=== PATIENT | female | born 1990 | race African-American/Black ===

== ENCOUNTER 2021-12-29 23:48 | Inpatient (IN) | payer MEDICAID, OTHER ==
[~2021-12-29] VITALS: Ht 157.5 cm; Wt 74.8 kg
--- NOTE | 2021-12-30 00:27 | NUR ---
BIBSELF C/O RIGHT SIDED WEAKNESS, SOB, ABD PAIN STARTED AT 9 AM. PT A/OX4. RESP EVEN AND NONLABORED ON R/A. PT AMBULATORY WITH STEADY GAIT. CONNECTED PT TO POX AND MONITOR. SAFETY MEASURES IN PLACE.
--- NOTE | 2021-12-30 00:55 | NUR ---
L HAND #20G S/L BLOOD COLLECTED AND SENT TO LAB.
[2021-12-30] MEDS ORDERED: ONDANSETRON HCL/PF 4 MG/2 ML VIAL ONE (00:56)
--- NOTE | 2021-12-30 00:56 | NUR ---
COVID ANTIGEN SWAB COLLECTED AND SENT TO LAB
[2021-12-30] MEDS ORDERED: ONDANSETRON HCL/PF 4 MG/2 ML VIAL IVP ONE (01:00)
[2021-12-30] MEDS ORDERED: IV NS 0.9% 500 ML BAG IV ONE (01:00)
--- NOTE | 2021-12-30 01:12 | NUR ---
URINE COLLECTED AND SENT TO LAB
[2021-12-30 01:16] LABS: BASOPHILS % (AUTO) 0.8 % (0.0-2.0); EOSINOPHILS % (AUTO) 2.2 % (0.0-6.0); HEMATOCRIT 37 % (33-45); HEMOGLOBIN 11.5 g/dL (11.5-14.8); LYMPHOCYTES # (AUTO) 0.9 K/uL (0.8-4.8); LYMPHOCYTES % (AUTO) 24.6 % (20.0-44.0); MEAN CORPUSCULAR HGB CONC 32 g/dl (31.0-36.0); MEAN CORPUSCULAR VOLUME 70 fL (82-100); MONOCYTES # (AUTO) 0.4 K/uL (0.1-1.30); MONOCYTES % (AUTO) 11.6 % (2.0-12.0); NEUTROPHILS # (AUTO) 2.2 K/uL (1.8-8.9); NEUTROPHILS % (AUTO) 60.8 % (43.0-81.0); PLATELET COUNT (AUTO) 253 K/uL (150-450); RED BLOOD CELL COUNT(AUTO) 5.24 MIL/uL (4.0-5.2); WHITE BLOOD COUNT (AUTO) 3.7 K/uL (4.3-11.0)
[2021-12-30] MEDS ORDERED: MORPHINE SULFATE INJ 2 MG/ML DISP.SYRIN ONE (01:28)
[2021-12-30] MEDS ORDERED: MORPHINE SULFATE INJ 2 MG/ML DISP.SYRIN IV ONE (01:30)
[2021-12-30 01:40] LABS: BILIRUBIN,URINE LARGE (NEGATIVE); COLOR,URINE YELLOW (YELLOW); LEUKOCYTE ESTERASE ,URINE NEGATIVE (NEGATIVE); NITRITE, URINE NEGATIVE (NEGATIVE); PROTEIN,URINE 100 mg/dl (NEGATIVE); UGLUCOSE 100 MG/DL mg/dL (NEGATIVE); UROBILINOGEN,URINE >=8.0 EU/dL (0.2)
[2021-12-30 02:07] LABS: BACTERIA,URINE Rare /HPF (None Seen); SQUAMOUS EPITHELIAL CELL,UR Few /HPF (None Seen); WBC,URINE 0-2 /HPF (0-3)
[2021-12-30 02:08] LABS: CALCIUM, SERUM 9.2 mg/dL (8.5-10.1); CARBON DIOXIDE 21 mmol/L (21-32); CHLORIDE 104 mmol/L (98-107); CREATININE 0.8 mg/dL (0.6-1.3); GLUCOSE 108 mg/dL (74-106); POTASSIUM 4.2 mmol/L (3.5-5.1); SODIUM SERUM 138 mmol/L (136-145); UREA NITROGEN, BLOOD 14 mg/dL (7-18)
[2021-12-30 02:13] LABS: ALANINE AMINOTRANSFERASE 14 U/L (12-78); ALBUMIN 3.6 g/dL (3.4-5.0); ALKALINE PHOSPHATASE 139 U/L (46-116); ASPARTATE AMINOTRANSFERASE 29 U/L (15-37); BILIRUBIN,DIRECT 1.2 mg/dL (0.0-0.2); BILIRUBIN,TOTAL 2.3 mg/dL (0.2-1.0); TOTAL PROTEIN, SERUM 7.9 g/dL (6.4-8.2)
--- NOTE | 2021-12-30 08:13 | NUR ---
GOING TO BED 314-1
--- NOTE | 2021-12-30 08:20 | NUR ---
REPORT GIVEN TO MIRTHA DOSS FOR GAYATHRI
[2021-12-30 08:30] VITALS: BP 101/59
--- NOTE | 2021-12-30 08:42 | NUR ---
PT TRANSFERRED TO 3W IN STABLE CONDITION.
--- NOTE | 2021-12-30 08:45 | NUR ---
RN NOTE PATIENT WAS TRANSFERRED TO UNIT FORM ER. PATIENT CAM ETO UNIT VIA NO SIGN OF DISTRESS. PATIENT WAS ORIENTED TO ROOM SETUP AND EDUCATED TO THE USE OF CALL LIGHT. PATIENT REFUSED SKIN ASSESSMENT, PER PATIENT SKIN IS INTACT. ALL BELONGINGS CHECKED AND SIGNED. PATIENT AWAKE IN BED RESTING. A/O X4. NO S/S OF PAIN NOTED AT THIS TIME. ON ROOM AIR, NO DISTRESS OR SHORTNESS OF BREATH NOTED. IV ACCESS L HAND #20G, INTACT, PATENT AND FLUSHING WELL. PATIENT WITH EXTERNAL NETWORKING TECHNOLOGY INSTRUCTOR WITH CURRENT READING OF SR AND HR OF 90, NO CARDIAC DISTRESS NOTED. FALL AND SAFETY MEASURES IN PLACE, BED ALARM ON, BED IN LOW AND LOCK POSITION, CALL LIGHT AND TABLE WITHIN EASY REACH, SIDE RAILS UP X2. WILL CONTINUE TO MONITOR.
[2021-12-30] MEDS ORDERED: ASPIRIN EC 325 MG TABLET.DR PO SCH (09:00)
[2021-12-30] MEDS: PANTOPRAZOLE 40 MG TABLET.DR PO SCH (10:08)
[2021-12-30] MEDS ORDERED: oxyCODONE/APAP (5/325 MG) 1 UDTAB TABLET PO PRN (11:30)
[2021-12-30 12:00] VITALS: BP 109/68
[2021-12-30 16:00] VITALS: BP 137/57
[2021-12-30] MEDS ORDERED: PANT40TA49 PO (16:21)
[2021-12-30] MEDS ORDERED: ASPI-1169 PO (16:21)
[2021-12-30] MEDS ORDERED: MIDO5TAB4 PO (16:21)
[2021-12-30] MEDS ORDERED: ATOR40TA PO (16:21)
[2021-12-30] MEDS ORDERED: ACET-3117 PO (16:21)
[2021-12-30] MEDS ORDERED: ONDA-97 PO (16:21)
[2021-12-30] MEDS ORDERED: APIX5TAB PO (16:21)
[2021-12-30] MEDS ORDERED: AMIO200T5 PO (16:21)
[2021-12-30] MEDS ORDERED: MORP15TA PO (16:49)
[2021-12-30] MEDS ORDERED: MIDODRINE HCL (5MG) 5 MG TABLET PO PRN (17:30)
[2021-12-30] MEDS: AMIODARONE HCL 200 MG TABLET PO SCH ×2 (17:30→17:41)
[2021-12-30] MEDS: MORPHINE SULFATE IR 15 MG TABLET PO SCH ×2 (17:40→18:00)
[2021-12-30] MEDS: ATORVASTATIN 40 MG TABLET PO SCH ×2 (17:41→18:00)
[2021-12-30] MEDS ORDERED: ACETAMINOPHEN 325 MG TABLET PO PRN (18:00)
--- NOTE | 2021-12-30 18:45 | NUR ---
RN NOTE PATIENT REFUSED HER MEDICATIONS FOR 17OO, AMIODARONE, ATORVASTATIN AND MORPHINE PO. PATIENT FIRST ASKED FOR PAIN MEDICATION, AFTER MEDICATIONS WERE OPENED SHE SAID SHE WILL NOT TAKE IT UNTIL AFTER SHE FINISH HER DINNER, AFTER PATIENT FINISHED DINNER SHE STILL REFUSED THE MEDICATIONS. MEDICATION MORPHINE, AMIODARONE AND ATORVASTATIN WAS WAISTED WITH CHARGE NURSE. PHARMACY AWARE.
--- NOTE | 2021-12-30 19:02 | NUR ---
RN CLOSING NOTE PATIENT AWAKE IN BED RESTING. A/O X4. PAIN 8/10 NOTED AT THIS TIME, BUT PATIENT REFUSED PAIN MEDICATION. ON ROOM AIR, NO DISTRESS OR SHORTNESS OF BREATH NOTED. IV ACCESS L HAND #20G, INTACT, PATENT AND FLUSHING WELL. PATIENT WITH EXTERNAL SUB MASTER WITH CURRENT READING OF ST AND HR OF 109, NO CARDIAC DISTRESS NOTED. FALL AND SAFETY MEASURES IN PLACE, BED ALARM ON, BED IN LOW AND LOCK POSITION, CALL LIGHT AND TABLE WITHIN EASY REACH, SIDE RAILS UP X2. WILL ENDORSE TO BAND SAWYER.
--- NOTE | 2021-12-30 19:45 | NUR ---
LCPC OPENING NOTE RECEIVED PATIENT IN BED; AWAKE, ALERT AND ORIENTED X 4. BREATHING EVEN AND UNLABORED. ON ROOM AIR; TOLERATING WELL. NOT IN ANY FORM OF RESPIRATORY DISTRESS. ON TELEMETRY MONITORING WITH READING OF S HR-105 BPM. WITH IV ACCESS ON LEFT HAND 2Og: PATENT, INTACT AND SALINE LOCKED. ABLE TO MAKE NEEDS KNOWN. SAFETY MEASURES IMPLEMENTED: CALL LIGHT AND TABLE WITHIN REACH, SIDE RAILS UP X 2, BED IN LOWEST LOCKED POSITION. WILL CONTINUE TO MONITOR. .
[2021-12-30 20:00] VITALS: BP 95/53
[2021-12-30] MEDS: SIMVASTATIN 20 MG TABLET PO SCH (21:31)
--- NOTE | 2021-12-30 21:31 | NUR ---
RN NOTE SIMVASTATIN 40 MG PO HELD PER PATIENT'S REQUEST.
[2021-12-31] VITALS: BP 88/52
--- NOTE | 2021-12-31 00:54 | NUR ---
RN NOTE MORPHINE SULFATE IR 15 MG PO HELD PER PATIENT'S REQUEST. WILL CONTINUE TO MONITOR
[2021-12-31 04:00] VITALS: BP 101/74
[2021-12-31] MEDS: MORPHINE SULFATE IR 15 MG TABLET PO SCH ×5 (06:00→23:44)
--- NOTE | 2021-12-31 06:49 | NUR ---
RN NOTE MORPHINE SULFATE IR 15 MG PO HELD PER PATIENT'S REQUEST. WILL CONTINUE TO MONITOR
[2021-12-31 06:52] LABS: BASOPHILS % (AUTO) 1.1 % (0.0-2.0); EOSINOPHILS % (AUTO) 2.1 % (0.0-6.0); HEMATOCRIT 34 % (33-45); HEMOGLOBIN 10.9 g/dL (11.5-14.8); LYMPHOCYTES # (AUTO) 0.9 K/uL (0.8-4.8); MEAN CORPUSCULAR HGB CONC 32 g/dl (31.0-36.0); MEAN CORPUSCULAR VOLUME 69 fL (82-100); MONOCYTES # (AUTO) 0.4 K/uL (0.1-1.30); MONOCYTES % (AUTO) 11.7 % (2.0-12.0); NEUTROPHILS # (AUTO) 2.2 K/uL (1.8-8.9); NEUTROPHILS % (AUTO) 60.1 % (43.0-81.0); PLATELET COUNT (AUTO) 229 K/uL (150-450); RED BLOOD CELL COUNT(AUTO) 4.96 MIL/uL (4.0-5.2); WHITE BLOOD COUNT (AUTO) 3.6 K/uL (4.3-11.0)
[2021-12-31] MEDS ORDERED: MORPHINE SULFATE INJ 2 MG/ML DISP.SYRIN IV ONE (07:00)
--- NOTE | 2021-12-31 07:00 | NUR ---
EXPERIMENTAL DISPLAY BUILDER CLOSING NOTE PATIENT IN BED; AWAKE, ALERT AND ORIENTED X 4. BREATHING EVEN AND UNLABORED. STABLE ON ROOM AIR. IN NO ACUTE DISTRESS. ON TELEMETRY MONITORING WITH READING OF SR HR-91BPM. WITH IV ACCESS ON LEFT HAND 2Og: PATENT, INTACT AND SALINE LOCKED. SAFETY MEASURES MAINTAINED: CALL LIGHT AND TABLE WITHIN REACH, SIDE RAILS UP X 2, BED IN LOWEST LOCKED POSITION. ENDORSED TO MIRTHA DOSS FOR GAYATHRI.
--- NOTE | 2021-12-31 07:08 | NUR ---
RN NOTE PATIENT C/O ABDOMINAL PAIN 12/02. MORPHINE 2MG IV GIVEN ORDERED. ENDORSED TO MIRTHA DOSS FOR GAYATHRI.
[2021-12-31 07:13] LABS: CREATININE 0.9 mg/dL (0.6-1.3); POTASSIUM 4.2 mmol/L (3.5-5.1)
--- NOTE | 2021-12-31 07:33 | NUR ---
RN OPENING NOTE PATIENT AWAKE IN BED RESTING. A/O X4. NO PAIN NOTED AT THIS TIME. ON ROOM AIR, NO DISTRESS OR SHORTNESS OF BREATH NOTED. IV ACCESS L HAND #20G, INTACT, PATENT AND FLUSHING WELL. PATIENT WITH EXTERNAL RN FLIGHT WITH CURRENT READING OF SR AND HR OF 91, NO CARDIAC DISTRESS NOTED. FALL AND SAFETY MEASURES IN PLACE, BED ALARM ON, BED IN LOW AND LOCK POSITION, CALL LIGHT AND TABLE WITHIN EASY REACH, SIDE RAILS UP X2. WILL ENDORSE TO SEGMENTAL WALL INSTALLER.
[2021-12-31 08:00] VITALS: BP 102/77
[2021-12-31] MEDS: ASPIRIN 81 MG TAB.CHEW PO SCH (08:35)
[2021-12-31] MEDS: PANTOPRAZOLE 40 MG TABLET.DR PO SCH (08:35)
[2021-12-31] MEDS: APIXABAN 5 MG TABLET PO SCH ×2 (08:37→17:13)
[2021-12-31] MEDS: AMIODARONE HCL 200 MG TABLET PO SCH (08:43)
[2021-12-31] MEDS ORDERED: PANTOPRAZOLE 40 MG TABLET.DR PO SCH (09:00)
[2021-12-31 09:02] LABS: EOSINOPHILS % (MANUAL) 2 % (0-4); LYMPHOCYTES % (MANUAL) 27 % (16-48); MONOCYTES % (MANUAL) 11 % (0-11.0); NEUTROPHILS % (MANUAL) 60 (42-76)
[2021-12-31 10:00] LABS: IRON, SERUM 43 ug/dl (50-175); TOTAL IRON BINDING CAPACITY 547 ug/dl (250-450)
--- NOTE | 2021-12-31 10:00 | NUR ---
RN NOTE PATIENT WAS NONCOMPLIANT WITH MEDICATIONS AND KEPT REFUSING ALL HER SCHEDULE MEDICATIONS. PATIENT ONLY WANT MORPHINE IV. PATIENT HAVE MORPHINE PO BUT REFUSED TO TAKE IT. PATIENT REQUESTED MORPHINE IV AND SAID IF SHE DOES NOT GET IT SHE WOULD LIKE TO LEAVE. DOCTOR NOTIFIED. CHARGE NURSE SPOKE WITH PATIENT AND EXPLAIN AGAIN HER DIAGNOSIS, RISK AND FACTORS OF HER NOT TAKING HER MEDICATIONS. PATIENT STATED SHE WILL TAKE HER MEDICATIONS BUT WOULD LIKE HER DOCTOR TO BE CHANGE. CHARGE NURSE AWARE.
[2021-12-31 10:14] LABS: FERRITIN 30 ng/mL (8-388)
[2021-12-31] MEDS: CARVEDILOL 3.125 MG TABLET PO SCH ×2 (10:37→21:00)
[2021-12-31] MEDS: SPIRONOLACTONE 25 MG TABLET PO SCH (10:37)
[2021-12-31] MEDS ORDERED: MAG HYDROX/AL HYDROX/SIMETH 30 ML UDC PO PRN (14:30)
--- NOTE | 2021-12-31 14:43 | NUR ---
RN NOTE PATIENT COMPLAINED OF STOMACHACHE AND ABDOMINAL PAIN, MAALOX WAS ORDERED BUT PATIENT REFUSED. PATIENT HAVE MORPHINE PO FOR PAIN BUT PATIENT REFUSED TO TAKE IT, PATIENT SAID SHE WAS TAKING MORPHINE PO AT HOME AND STOP TAKING IT BECAUSE IT MAKE HER VOMIT NONE-STOP PATIENT KEEP ASKING FOR IV MORPHINE, DOCTOR IS AWARE AND ALREADY TALKED TO PATIENT ABOUT IT. PATIENT REQUESTED FOR HER DOCTOR TO BE CHANGE, CHARGE NURSE AWARE.
[2021-12-31 16:00] VITALS: BP 108/74
[2021-12-31] MEDS: ATORVASTATIN 40 MG TABLET PO SCH (17:13)
[2021-12-31] MEDS: ONDANSETRON HCL/PF 4 MG/2 ML VIAL IVP PRN (17:13)
--- NOTE | 2021-12-31 18:41 | NUR ---
RN CLOSING NOTE PATIENT AWAKE IN BED RESTING. A/O X4. NO PAIN NOTED AT THIS TIME. ON ROOM AIR, NO DISTRESS OR SHORTNESS OF BREATH NOTED. IV ACCESS R HAND #20G, INTACT, PATENT AND FLUSHING WELL. PATIENT WITH EXTERNAL CORNCOB PIPE MANUFACTURING SUPERVISOR WITH CURRENT READING OF SR AND HR OF 90, NO CARDIAC DISTRESS NOTED. FALL AND SAFETY MEASURES IN PLACE, BED ALARM ON, BED IN LOW AND LOCK POSITION, CALL LIGHT AND TABLE WITHIN EASY REACH, SIDE RAILS UP X2. WILL ENDORSE TO DREDGE DECKHAND.
--- NOTE | 2021-12-31 19:41 | NUR ---
RN OPENING NOTE RECEIVED PATIENT IN BED SLEEPING BUT EASY TO AROUSED,. A/O X4. ON ROOM AIR, NO SOB/DISTRESS NOTED. IV ACCESS L HAND #20G, INTACT, PATENT AND FLUSHING WELL. PATIENT WITH EXTERNAL TANKER DRIVER WITH CURRENT READING OF SR AND HR OF 89,FALL AND SAFETY MEASURES IN PLACE,BED IN LOW AND LOCK POSITION, CALL LIGHT AND TABLE WITHIN EASY REACH, SIDE RAILS UP X2. WILL CONTINUE TO MONITOR.
[2021-12-31 20:00] VITALS: BP 98/60
[2021-12-31] MEDS: SIMVASTATIN 20 MG TABLET PO SCH (21:14)
[2022-01-01] VITALS: BP 97/55
[2022-01-01 04:00] VITALS: BP 98/58
[2022-01-01] MEDS: MORPHINE SULFATE IR 15 MG TABLET PO SCH ×2 (05:35→12:00)
--- NOTE | 2022-01-01 05:38 | NUR ---
RN NOTES; PT REFUSED MORPHINE 15MG,SHE SAID DON'T NEED IT.
--- NOTE | 2022-01-01 06:19 | NUR ---
RN CLOSING NOTE; PATIENT IN BED AA/O X4,NICOLE WELL ON ROOM AIR,NO SOB/DISTRESS NOTED,BREATHING EVEN AND UNLABORED,DUE MEDS GIVEN ORDER,ALL NEEDS ATTENDED, IV ACCESS R HAND #20G, INTACT, PATENT AND FLUSHING WELL. PATIENT WITH EXTERNAL INDUSTRIAL LOCOMOTIVE OPERATOR WITH CURRENT READING OF SR 88, FALL AND SAFETY MEASURES IN PLACE, BED ALARM ON, BED IN LOW AND LOCK POSITION, CALL LIGHT AND TABLE WITHIN EASY REACH, SIDE RAILS UP X2. WILL ENDORSE TO PRINCIPAL JAVA SOFTWARE ENGINEER
--- NOTE | 2022-01-01 07:20 | NUR ---
RN OPENING NOTES RECEIVED PATIENT IN BED AWAKE, A/O X4, VERBALLY RESPONSIVE, NO SIGNS OF ACUTE DISTRESS NOTED. ON ROOM AIR, NO SOB NOTED. BREATHING EVEN AND UNLABORED. ON TELE MONITOR SHOWING SR, HR @ 89. NOTED WITH IV ACCESS ON LEFT HAND #20G, INTACT AND PATENT, SALINE LOCKED. NO C/O PAIN AT THIS TIME. SAFETY MEASURE IN PLACE. BED IN LOWEST AND LOCKED POSITION, SIDE RAILS UP X2, CALL LIGHT PLACED WITHIN EASY REACH. WILL CONTINUE TO MONITOR PATIENT.
[2022-01-01 08:00] VITALS: BP 105/67
--- NOTE | 2022-01-01 08:30 | NUR ---
WOUND CARE CONSULT: RECEIVED CONSULT FOR REDNESS/BLEEDING AT ABDOMINAL FOLDS BUT NO ISSUES WITH SKIN NOTED. WILL SEE PRN.
[2022-01-01] MEDS ORDERED: SPIR25TA6 PO (08:44)
[2022-01-01] MEDS ORDERED: CARV3.122 PO (08:44)
[2022-01-01] MEDS ORDERED: PANT40TA49 PO (08:44)
[2022-01-01] MEDS ORDERED: MORP15TA PO (08:44)
[2022-01-01] MEDS: CARVEDILOL 3.125 MG TABLET PO SCH (09:00)
[2022-01-01] MEDS: APIXABAN 5 MG TABLET PO SCH (09:09)
[2022-01-01] MEDS: SPIRONOLACTONE 25 MG TABLET PO SCH (09:10)
[2022-01-01] MEDS: AMIODARONE HCL 200 MG TABLET PO SCH (09:10)
[2022-01-01] MEDS: PANTOPRAZOLE 40 MG TABLET.DR PO SCH (09:10)
[2022-01-01] MEDS: ASPIRIN 81 MG TAB.CHEW PO SCH (09:10)
[2022-01-01 12:00] VITALS: BP 97/65
[2022-01-01] MEDS ORDERED: MORPHINE SULFATE IR 15 MG TABLET PO ONE (15:00)
[2022-01-01] MEDS: ONDANSETRON HCL/PF 4 MG/2 ML VIAL IVP PRN (15:04)
--- NOTE | 2022-01-01 16:50 | NUR ---
CLERICAL MANAGER NOTE PATIENT DISCHARGED HOME IN STABLE CONDITION. PATIENT REMAINS AWAKE, A/O X4, VERBALLY RESPONSIVE. NO SIGNS OF ACUTE DISTRESS NOTED. IV ACCESS ON RIGHT HAND REMOVED, NO BLEEDING NOTED, PRESSURE DRESSING APPLIED TO SITE. ARM NAME BAND REMOVED. ALL BELONGINGS ACCOUNTED FOR. FORM VALERIO BY PATIENT. EXITCARE FOLDER GIVEN TO PATIENT, HEALTH TEACHINGS AND DISCHARGED INSTRUCTIONS PROVIDED WITH VERBALIZATION OF UNDERSTANDING. PATIENT LEFT UNIT VIA W/C ACCOMPANIED PATIENT TO THE LOBBY, PATIENT PICKED UP BY [facility] @3678. AWARE OF DISCHARGE.
--- NOTE | 2022-01-02 09:35 | NUR ---
SS consult requested for code stroke.However, Pt. has departed.
== END 2022-01-01 16:00 | disposition home health service (06) | DRG 54 ==
LOC: ER 23:51 → TRANSITION 12-30 06:17 → TELE 12-30 08:24
PROVIDERS: ADMIT Internal Medicine; ATTEND Internal Medicine
DX: G43.109 Migraine with aura, not intractable, without status migrainosus (principal); I50.23 Acute on chronic systolic (congestive) heart failure; I27.20 Pulmonary hypertension, unspecified; I42.9 Cardiomyopathy, unspecified; R47.1 Dysarthria and anarthria; K76.1 Chronic passive congestion of liver; I69.351 Hemiplegia and hemiparesis following cerebral infarction affecting right dominant side; Z20.822 Contact with and (suspected) exposure to COVID-19; Z88.8 Allergy status to other drugs, medicaments and biological substances; G89.29 Other chronic pain; E80.6 Other disorders of bilirubin metabolism; D21.4 Benign neoplasm of connective and other soft tissue of abdomen; D64.9 Anemia, unspecified; Z79.01 Long term (current) use of anticoagulants; Z79.82 Long term (current) use of aspirin; Z79.899 Other long term (current) drug therapy
CPT/HCPCS: 36415; 70450-TC; 70544-TC; 70551-TC; 71045-TC; 80048-TC; 80061-TC; 80076-TC; 81001; 82728-TC; 83540-TC; 84484-TC; 84703-TC; 85025-TC; 85652-TC; 85730-TC; 87081-TC; 92507-TC; 92521; 93307-TC; 97112-TC; 97116-TC; 97164; 97530-TC; 97535-TC; C9803; G0378; J2270; J2405; J7040

== ENCOUNTER 2022-01-14 20:14 | Emergency (ER) | payer OTHER ==
[~2022-01-14] VITALS: Ht 157.5 cm; Wt 81.6 kg
[~2022-01-14 20:14] MED LIST: ACET-3117 PO; AMIO200T5 PO; APIX5TAB PO; ASPI-1169 PO; ATOR40TA PO; CARV3.122 PO; MIDO5TAB4 PO; MORP15TA PO; ONDA-97 PO; PANT40TA49 PO; SPIR25TA6 PO
--- NOTE | 2022-01-14 20:29 | NUR ---
CALLED FOR TRIAGE, NO RESPONSE AND NOT IN WAITING ROOM
--- NOTE | 2022-01-14 20:40 | NUR ---
TO ER BED 3. BIBS. R SIDE ABD PAIN AND DARK RED BLOOD STOOL X 4 DAYS LAST EPISODE 1 HR . PT ALERT AND ORIENTED. RR EVEN AND NON LABORED. CONNECTED TO MONITOR. AWAITING MD MENEZES
[2022-01-14] MEDS ORDERED: MORPHINE SULFATE INJ 4 MG/ML DISP.SYRIN ONE ×2 (20:54→20:59)
[2022-01-14] MEDS ORDERED: ONDANSETRON HCL/PF 4 MG/2 ML VIAL ONE ×2 (20:54→20:58)
[2022-01-14] MEDS ORDERED: ONDANSETRON HCL/PF 4 MG/2 ML VIAL IVP ONE (21:00)
[2022-01-14] MEDS ORDERED: IV NS 0.9% 1,000 ML BAG IV ONE (21:00)
[2022-01-14] MEDS ORDERED: MORPHINE SULFATE INJ 2 MG/ML DISP.SYRIN IV ONE (21:00)
--- NOTE | 2022-01-14 21:03 | NUR ---
RETURNED MORPHINE 4MG AND ZOFRAN 4MG, WAS ALREADY PULLED BY ANOTHER NURSE. WITNESSED BY SECOND RN
--- NOTE | 2022-01-14 21:16 | NUR ---
RAC #20G S/L BLOOD COLLECTED AND SENT TO LAB. OFFERED PT URINE CUP; NOT ABLE TO URINATE AT THIS TIME. WILL TRY AGAIN LATER.
[2022-01-14 22:20] LABS: BASOPHILS # (AUTO) 0.1 K/uL (0.0-0.2); BASOPHILS % (AUTO) 1.3 % (0.0-2.0); EOSINOPHILS % (AUTO) 1.6 % (0.0-6.0); HEMATOCRIT 36 % (33-45); HEMOGLOBIN 11.5 g/dL (11.5-14.8); LYMPHOCYTES # (AUTO) 0.9 K/uL (0.8-4.8); LYMPHOCYTES % (AUTO) 19.6 % (20.0-44.0); MEAN CORPUSCULAR HGB CONC 32 g/dl (31.0-36.0); MEAN CORPUSCULAR VOLUME 68 fL (82-100); MONOCYTES # (AUTO) 0.3 K/uL (0.1-1.30); MONOCYTES % (AUTO) 6.8 % (2.0-12.0); NEUTROPHILS # (AUTO) 3.2 K/uL (1.8-8.9); NEUTROPHILS % (AUTO) 70.7 % (43.0-81.0); PLATELET COUNT (AUTO) 215 K/uL (150-450); RED BLOOD CELL COUNT(AUTO) 5.34 MIL/uL (4.0-5.2); WHITE BLOOD COUNT (AUTO) 4.6 K/uL (4.3-11.0)
[2022-01-14 22:32] LABS: CREATININE 0.9 mg/dL (0.6-1.3); POTASSIUM 3.9 mmol/L (3.5-5.1)
[2022-01-14 22:47] LABS: ALBUMIN 3.9 g/dL (3.4-5.0); BILIRUBIN,DIRECT 1.4 mg/dL (0.0-0.2); BILIRUBIN,TOTAL 2.9 mg/dL (0.2-1.0); TOTAL PROTEIN, SERUM 8.5 g/dL (6.4-8.2)
--- NOTE | 2022-01-14 23:13 | NUR ---
IV removed. Catheter intact and site benign. Pressure and 4x4 applied to site. No bleeding noted.
--- NOTE | 2022-01-14 23:14 | NUR ---
Patient discharged to home in stable condition. Written and verbal after care instructions given. Patient verbalizes understanding of instruction.
--- NOTE | 2022-01-14 23:20 | NUR ---
CALLED CALL THE [facility] TO ARRANGE TRANSPORTATION
[2022-01-15 03:40] VITALS: BP 118/86
== END 2022-01-15 03:41 | disposition home or self-care (01) ==
LOC: ER 20:16
DX: K62.5 Hemorrhage of anus and rectum (principal); Z88.8 Allergy status to other drugs, medicaments and biological substances; Z60.2 Problems related to living alone; Z79.899 Other long term (current) drug therapy
CPT/HCPCS: 99284; 96374; 96361; 96375; 93005; 85025; 80048; 83690; 80076; 36415; 84484; 85730; 86850; J2270; J2405; J7030 ×2

== ENCOUNTER 2022-01-18 19:47 | Emergency (ER) | payer OTHER ==
[~2022-01-18] VITALS: Ht 162.6 cm; Wt 59.0 kg
[2022-01-18 20:32] VITALS: BP 109/62
--- NOTE | 2022-01-18 20:32 | NUR ---
BIBFAMILY C/O PAIN WITH COUGH AND BODY ACHES STARTED THIS MORNING
--- NOTE | 2022-01-18 20:45 | NUR ---
ISAMAR ALTAMIRANO AT PT'S BEDSIDE
[2022-01-18] MEDS ORDERED: BENZONATATE 100 MG CAPSULE PO PRN (21:00)
--- NOTE | 2022-01-18 21:19 | NUR ---
SNATH HANDLE ASSEMBLER AT PT'S BEDSIDE
[2022-01-18] MEDS ORDERED: BENZ-13 PO (21:34)
--- NOTE | 2022-01-18 22:41 | NUR ---
Patient discharged to home in stable condition. RX Written and verbal after care instructions given. Patient verbalizes understanding of instruction. pt ambulatory with a steady gait
== END 2022-01-19 01:08 | disposition home or self-care (01) ==
LOC: ER 20:02
DX: U07.1 COVID-19 (principal); R05.9 Cough, unspecified; Z88.8 Allergy status to other drugs, medicaments and biological substances; Z60.2 Problems related to living alone; Z79.899 Other long term (current) drug therapy
CPT/HCPCS: 71046

== ENCOUNTER 2022-01-25 18:53 | Emergency (ER) | payer BC, OTHER ==
[~2022-01-25] VITALS: Ht 162.6 cm; Wt 59.0 kg
[~2022-01-25 18:53] MED LIST changes: +BENZ-13 PO
--- NOTE | 2022-01-25 20:32 | NUR ---
BIBFAMILY C/O RIGHT SIDED ABD PAIN THAT STARTED TODAY. PT A/OX4. TOLERATING R/A WELL WITH NO RESP DISTRESS. SAFETY MEASURES IN PLACE.
--- NOTE | 2022-01-25 20:38 | NUR ---
DR YEE CARTAGENA AT PT'S BEDSIDE FOR EVAL
[2022-01-25] MEDS ORDERED: MORPHINE SULFATE INJ 2 MG/ML DISP.SYRIN ONE ×2 (20:46→22:30)
[2022-01-25] MEDS ORDERED: ONDANSETRON HCL/PF 4 MG/2 ML VIAL ONE (20:54)
[2022-01-25] MEDS ORDERED: IV NS 0.9% 1,000 ML BAG IV ONE (21:00)
[2022-01-25] MEDS ORDERED: MORPHINE SULFATE INJ 2 MG/ML DISP.SYRIN IV ONE ×3 (21:00→22:30)
[2022-01-25] MEDS ORDERED: ONDANSETRON HCL/PF - ER 4 MG/2 ML VIAL IV ONE (21:00)
--- NOTE | 2022-01-25 21:20 | NUR ---
L PANKAJ #20G S/L BLOOD COLLECTED AND SENT TO LAB
[2022-01-25 21:21] LABS: BASOPHILS # (AUTO) 0.1 K/uL (0.0-0.2); BASOPHILS % (AUTO) 1.3 % (0.0-2.0); EOSINOPHILS % (AUTO) 1.2 % (0.0-6.0); HEMATOCRIT 37 % (33-45); HEMOGLOBIN 11.9 g/dL (11.5-14.8); LYMPHOCYTES # (AUTO) 1.2 K/uL (0.8-4.8); LYMPHOCYTES % (AUTO) 22.1 % (20.0-44.0); MEAN CORPUSCULAR HGB CONC 32 g/dl (31.0-36.0); MEAN CORPUSCULAR VOLUME 67 fL (82-100); MONOCYTES # (AUTO) 0.5 K/uL (0.1-1.30); MONOCYTES % (AUTO) 9.3 % (2.0-12.0); NEUTROPHILS # (AUTO) 3.5 K/uL (1.8-8.9); NEUTROPHILS % (AUTO) 66.1 % (43.0-81.0); PLATELET COUNT (AUTO) 293 K/uL (150-450); RED BLOOD CELL COUNT(AUTO) 5.46 MIL/uL (4.0-5.2); WHITE BLOOD COUNT (AUTO) 5.3 K/uL (4.3-11.0)
[2022-01-25 21:36] LABS: BILIRUBIN,URINE 2+ (NEGATIVE); COLOR,URINE YELLOW (YELLOW); LEUKOCYTE ESTERASE ,URINE NEGATIVE (NEGATIVE); NITRITE, URINE NEGATIVE (NEGATIVE); PH,URINE 6.5 (5.0-8.0); PROTEIN,URINE 2+ mg/dl (NEGATIVE); UGLUCOSE NEGATIVE (NEGATIVE); UROBILINOGEN,URINE >=8.0 EU/dL (0.2)
--- NOTE | 2022-01-25 21:40 | NUR ---
US TECH AT PT'S BEDSIDE
[2022-01-25 21:45] LABS: BACTERIA,URINE 1+ /HPF (None Seen); MUCUS,URINE Few /LPF (None Seen); RBC,URINE 21-50 /HPF (0-2); WBC,URINE 0-2 /HPF (0-3)
[2022-01-25] MEDS ORDERED: MORPHINE SULFATE INJ 4 MG/ML DISP.SYRIN ONE (21:52)
[2022-01-25 21:53] LABS: LYMPHOCYTES % (MANUAL) 24 % (16-48); MONOCYTES % (MANUAL) 5 % (0-11.0); NEUTROPHILS % (MANUAL) 71 (42-76)
--- NOTE | 2022-01-25 22:35 | NUR ---
CAR ICER AT PT'S BEDSIDE FOR REDRAW
[2022-01-25 23:00] VITALS: BP 121/88
--- NOTE | 2022-01-25 23:00 | NUR ---
Patient discharged to home in stable condition. Written and verbal after care instructions given. Patient verbalizes understanding of instruction. IV removed. Catheter intact and site benign. Pressure and 4x4 applied to site. No bleeding noted. pt ambulatory with a steady gait
[2022-01-25 23:45] LABS: ALBUMIN 1.7 g/dL (3.4-5.0); BILIRUBIN,DIRECT 0.7 mg/dL (0.0-0.2); BILIRUBIN,TOTAL 1.6 mg/dL (0.2-1.0); CREATININE 0.6 mg/dL (0.6-1.3); TOTAL PROTEIN, SERUM 4.2 g/dL (6.4-8.2)
[2022-01-25 23:58] LABS: CALCIUM, SERUM 4.8 mg/dL (8.5-10.1); POTASSIUM 2.7 mmol/L (3.5-5.1)
== END 2022-01-25 23:00 | disposition home or self-care (01) ==
LOC: ER 19:03
DX: R10.2 Pelvic and perineal pain (principal); Z88.8 Allergy status to other drugs, medicaments and biological substances; Z60.2 Problems related to living alone; Z79.899 Other long term (current) drug therapy
CPT/HCPCS: 99284; 96374; 76856; 96361; 96375; 96376; 85025; 80048; 87086; 83690; 80076; 84703; 81001; 36415; 84702; 85007; J2270 ×3; J2405; J7030

== ENCOUNTER 2022-03-14 21:00 | Emergency (ER) | payer BC ==
[~2022-03-14] VITALS: Ht 157.5 cm; Wt 61.2 kg
[2022-03-14 23:17] VITALS: BP 105/70
[2022-03-14] MEDS ORDERED: oxyCODONE/APAP (5/325 MG) 1 UDTAB TABLET ONE (23:30)
[2022-03-14] MEDS: oxyCODONE/APAP (5/325 MG) 1 UDTAB TABLET PO ONE (23:31)
--- NOTE | 2022-03-14 23:32 | NUR ---
Patient discharged to home in stable condition. Written and verbal after care instructions given. Patient verbalizes understanding of instruction.
== END 2022-03-14 23:33 | disposition home or self-care (01) ==
LOC: ER 21:01
DX: G89.18 Other acute postprocedural pain (principal); Z86.73 Personal history of transient ischemic attack (TIA), and cerebral infarction without residual deficits; Z60.2 Problems related to living alone; Z88.6 Allergy status to analgesic agent; Z79.82 Long term (current) use of aspirin

== ENCOUNTER 2022-03-24 00:41 | Emergency (ER) | payer BC ==
[~2022-03-24] VITALS: Ht 157.5 cm; Wt 90.7 kg
--- NOTE | 2022-03-24 01:11 | NUR ---
WEIVER SIGNED BY PT
[2022-03-24] MEDS ORDERED: MORPHINE SULFATE INJ 4 MG/ML DISP.SYRIN ONE (01:15)
[2022-03-24] MEDS ORDERED: MORPHINE SULFATE INJ 2 MG/ML DISP.SYRIN IV ONE (01:30)
[2022-03-24 01:56] LABS: BASOPHILS # (AUTO) 0.2 K/uL (0.0-0.2); BASOPHILS % (AUTO) 3.1 % (0.0-2.0); EOSINOPHILS % (AUTO) 0.1 % (0.0-6.0); HEMATOCRIT 38 % (33-45); HEMOGLOBIN 11.9 g/dL (11.5-14.8); LYMPHOCYTES # (AUTO) 0.5 K/uL (0.8-4.8); LYMPHOCYTES % (AUTO) 9.9 % (20.0-44.0); MEAN CORPUSCULAR HGB CONC 32 g/dl (31.0-36.0); MEAN CORPUSCULAR VOLUME 71 fL (82-100); MONOCYTES # (AUTO) 0.2 K/uL (0.1-1.30); MONOCYTES % (AUTO) 3.5 % (2.0-12.0); NEUTROPHILS # (AUTO) 4.2 K/uL (1.8-8.9); NEUTROPHILS % (AUTO) 83.4 % (43.0-81.0); PLATELET COUNT (AUTO) 299 K/uL (150-450); RED BLOOD CELL COUNT(AUTO) 5.31 MIL/uL (4.0-5.2); WHITE BLOOD COUNT (AUTO) 5.1 K/uL (4.3-11.0)
[2022-03-24 02:16] LABS: CALCIUM, SERUM 8.6 mg/dL (8.5-10.1); CARBON DIOXIDE 21 mmol/L (21-32); CHLORIDE 102 mmol/L (98-107); CREATININE 0.7 mg/dL (0.6-1.3); GLUCOSE 177 mg/dL (74-106); POTASSIUM 4.1 mmol/L (3.5-5.1); SODIUM SERUM 137 mmol/L (136-145); UREA NITROGEN, BLOOD 16 mg/dL (7-18)
[2022-03-24 02:18] LABS: D-DIMER 0.95 mg/L(FEU (0.17-0.50)
[2022-03-24 02:29] LABS: ALANINE AMINOTRANSFERASE 18 U/L (12-78); ALBUMIN 3.3 g/dL (3.4-5.0); ALKALINE PHOSPHATASE 179 U/L (46-116); ASPARTATE AMINOTRANSFERASE 24 U/L (15-37); BILIRUBIN,DIRECT 0.5 mg/dL (0.0-0.2); BILIRUBIN,TOTAL 0.9 mg/dL (0.2-1.0); TOTAL PROTEIN, SERUM 7.8 g/dL (6.4-8.2)
[2022-03-24] MEDS ORDERED: IOHEXOL-350 100 ML VIAL IV ONE (02:33)
--- NOTE | 2022-03-24 03:18 | NUR ---
PT RETURNED FROM CT
[2022-03-24] MEDS ORDERED: MORPHINE SULFATE IR 15 MG TABLET ONE (04:28)
[2022-03-24] MEDS ORDERED: MORPHINE SULFATE IR 15 MG TABLET PO ONE (04:30)
[2022-03-24] MEDS ORDERED: FUROSEMIDE 40 MG/4 ML VIAL ONE (04:59)
[2022-03-24] MEDS ORDERED: FUROSEMIDE 40 MG/4 ML VIAL IV ONE (05:00)
--- NOTE | 2022-03-24 06:12 | NUR ---
VALLEY PRESS MD HASSAN [phone] FOR PEER TO PEER
--- NOTE | 2022-03-24 06:13 | NUR ---
PAGED VALLEY PRESS FOR PEER TO PEER.
--- NOTE | 2022-03-24 06:41 | NUR ---
DR MAY ON PHONE CALL WITH DR MO CALDERON
--- NOTE | 2022-03-24 07:30 | NUR ---
ULYSSES MCCARTY- TICKET WRITER. FAX: [phone]. PHONE: [phone]
--- NOTE | 2022-03-24 07:57 | NUR ---
NICHO EMBEDDED SYSTEMS DESIGNER CALLED, SAID PT WITH BE ADMITTED TO ER HOLDING. CALL [phone] TO GIVE REPORT, CHARGE NURSE IS MADAY.
--- NOTE | 2022-03-24 08:01 | NUR ---
TASHA CALLED AGAIN, PROVIDED ROOM NUMBER [id number] FOR PT. NEW NUMBER TO CALL FOR REPORT IS [phone]. CALL ANYTIME AFTER 9AM. AUTHORIZATION NUMBER FOR TRANSPORT IS [id number].
--- NOTE | 2022-03-24 08:13 | NUR ---
TRANSPORTATION TO [facility] ETA [phone]. FACE SHEET, PACKET AND DISC ARE READY TO GO.
--- NOTE | 2022-03-24 09:01 | NUR ---
REPORT GIVEN TO KEITH DOSS FOR GAYATHRI
--- NOTE | 2022-03-24 10:44 | NUR ---
picked up by emt
[2022-03-24 10:48] VITALS: BP 112/76
== END 2022-03-24 10:52 | disposition short-term general hospital (02) ==
LOC: ER 00:47
DX: R06.02 Shortness of breath (principal); R07.9 Chest pain, unspecified; I50.9 Heart failure, unspecified; I42.9 Cardiomyopathy, unspecified; Z20.822 Contact with and (suspected) exposure to COVID-19; Z86.73 Personal history of transient ischemic attack (TIA), and cerebral infarction without residual deficits; Z86.16 Personal history of COVID-19; Z79.82 Long term (current) use of aspirin; Z79.01 Long term (current) use of anticoagulants; Z79.899 Other long term (current) drug therapy; Z88.6 Allergy status to analgesic agent
CPT/HCPCS: 99285; 96374; 71275; 71045; 96375; 87426; 93005; 85025; 80048; 80076; 85378; 36415; 84484 ×2; 85730; 83880; J1940; J2270; Q9967; C9803

== ENCOUNTER 2022-03-29 07:15 | Emergency (ER) | payer BC ==
[~2022-03-29] VITALS: Ht 157.5 cm; Wt 90.7 kg
--- NOTE | 2022-03-29 07:15 | NUR ---
RECEVED PT waking in c/o abdominle pain for 2 days pt was eating she is very hunger
--- NOTE | 2022-03-29 07:35 | NUR ---
SEEN by DR Luis Carlos SIMS ABDOMIN SOFT NONE TENDER TO TOUCH
[2022-03-29 07:39] VITALS: BP 97/66
--- NOTE | 2022-03-29 08:00 | NUR ---
UA SENT TO LAB
--- NOTE | 2022-03-29 08:08 | NUR ---
BLood drow by lab tach at bed side
[2022-03-29 08:45] LABS: BASOPHILS % (AUTO) 0.5 % (0.0-2.0); EOSINOPHILS % (AUTO) 5.6 % (0.0-6.0); HEMATOCRIT 38 % (33-45); HEMOGLOBIN 11.7 g/dL (11.5-14.8); LYMPHOCYTES # (AUTO) 0.7 K/uL (0.8-4.8); MEAN CORPUSCULAR HGB CONC 31 g/dl (31.0-36.0); MEAN CORPUSCULAR VOLUME 72 fL (82-100); MONOCYTES # (AUTO) 0.6 K/uL (0.1-1.30); MONOCYTES % (AUTO) 9.8 % (2.0-12.0); NEUTROPHILS % (AUTO) 71.1 % (43.0-81.0); PLATELET COUNT (AUTO) 279 K/uL (150-450); RED BLOOD CELL COUNT(AUTO) 5.25 MIL/uL (4.0-5.2); WHITE BLOOD COUNT (AUTO) 5.6 K/uL (4.3-11.0)
[2022-03-29 08:53] LABS: CALCIUM, SERUM 8.9 mg/dL (8.5-10.1); POTASSIUM 3.9 mmol/L (3.5-5.1)
[2022-03-29 09:02] LABS: BILIRUBIN,URINE NEGATIVE (NEGATIVE); COLOR,URINE DARK YELLOW (YELLOW); LEUKOCYTE ESTERASE ,URINE NEGATIVE (NEGATIVE); NITRITE, URINE NEGATIVE (NEGATIVE); PH,URINE 6.5 (5.0-8.0); PROTEIN,URINE 2+ mg/dl (NEGATIVE); UGLUCOSE NEGATIVE (NEGATIVE)
[2022-03-29 09:07] LABS: ALBUMIN 3.5 g/dL (3.4-5.0); BILIRUBIN,DIRECT 0.5 mg/dL (0.0-0.2); BILIRUBIN,TOTAL 0.9 mg/dL (0.2-1.0); TOTAL PROTEIN, SERUM 7.6 g/dL (6.4-8.2)
[2022-03-29 09:12] LABS: BACTERIA,URINE None seen /HPF (None Seen); RBC,URINE NONE SEEN /HPF (0-2); SQUAMOUS EPITHELIAL CELL,UR None Seen /HPF (None Seen); WBC,URINE NONE SEEN /HPF (0-3)
--- NOTE | 2022-03-29 09:14 | NUR ---
TEST NEGATIVE; RADIOLOGY INFORMED
--- NOTE | 2022-03-29 09:25 | NUR ---
PT WALKING OUT REFUSED CT SCAN DR. ABEBE NOTEFY
== END 2022-03-29 09:43 | disposition left against medical advice (07) ==
LOC: ER 07:22
DX: R10.9 Unspecified abdominal pain (principal); I42.9 Cardiomyopathy, unspecified; Z88.8 Allergy status to other drugs, medicaments and biological substances; Z60.2 Problems related to living alone; Z79.899 Other long term (current) drug therapy
CPT/HCPCS: 36415; 80048-TC; 80076-TC; 81001; 83690-TC; 84702-TC; 84703-TC; 85025-TC

== ENCOUNTER → 2022-04-01 | Emergency (ER) | payer BC ==
[~2022-04-01] VITALS: Ht 162.6 cm; Wt 70.3 kg
[~2022-04-01] MED LIST changes: +CT SWABBABLE VALVE TRANS SET 1 EA INFUS.SET MC ONE; +IOHEXOL-300 100 ML VIAL IV ONE; +IV NS 0.9% 250 ML IV ONE; +KETOROLAC TROMETHAMINE INJ 30 MG/ML VIAL IM ONE; +MORPHINE SULFATE INJ 2 MG/ML DISP.SYRIN IV ONE; +MORPHINE SULFATE INJ 2 MG/ML DISP.SYRIN ONE; +ONDANSETRON 4 MG TAB.RAPDIS ONE; +ONDANSETRON HCL/PF 4 MG/2 ML VIAL IVP ONE; +ONDANSETRON HCL/PF 4 MG/2 ML VIAL ONE
[2022-04-01 15:39] LABS: BASOPHILS % (AUTO) 0.9 % (0.0-2.0); HEMATOCRIT 34 % (33-45); HEMOGLOBIN 10.6 g/dL (11.5-14.8); LYMPHOCYTES # (AUTO) 0.9 K/uL (0.8-4.8); LYMPHOCYTES % (AUTO) 15.8 % (20.0-44.0); MEAN CORPUSCULAR HGB CONC 31 g/dl (31.0-36.0); MEAN CORPUSCULAR VOLUME 71 fL (82-100); MONOCYTES # (AUTO) 0.6 K/uL (0.1-1.30); MONOCYTES % (AUTO) 10.5 % (2.0-12.0); NEUTROPHILS # (AUTO) 3.9 K/uL (1.8-8.9); NEUTROPHILS % (AUTO) 69.8 % (43.0-81.0); PLATELET COUNT (AUTO) 230 K/uL (150-450); RED BLOOD CELL COUNT(AUTO) 4.72 MIL/uL (4.0-5.2); WHITE BLOOD COUNT (AUTO) 5.6 K/uL (4.3-11.0)
[2022-04-01 15:51] LABS: CALCIUM, SERUM 8.6 mg/dL (8.5-10.1); CREATININE 0.7 mg/dL (0.6-1.3); POTASSIUM 3.7 mmol/L (3.5-5.1)
[2022-04-01 15:59] LABS: ALBUMIN 3.4 g/dL (3.4-5.0); BILIRUBIN,DIRECT 0.5 mg/dL (0.0-0.2); BILIRUBIN,TOTAL 0.9 mg/dL (0.2-1.0); TOTAL PROTEIN, SERUM 7.2 g/dL (6.4-8.2)
[2022-04-01] MEDS: ONDANSETRON HCL/PF - ER 4 MG/2 ML VIAL IM ONE (16:05)
[2022-04-01] MEDS: MORPHINE SULFATE INJ 2 MG/ML DISP.SYRIN IM ONE (16:05)
--- NOTE | 2022-04-01 16:54 | NUR ---
Patient does not wish to proceed with medical care recommended by Dr. Javier. Patient given information related to possible complications, up to and including , which could occur as a result of leaving the hospital at this time. Patient verbalizes understanding of risks involved due to leaving against medical advice. Patient eloped from hospital without signing AMA form.
[2022-04-01 16:56] VITALS: BP 172/87
[2022-04-01 17:46] LABS: BILIRUBIN,URINE 1+ (NEGATIVE); COLOR,URINE YELLOW (YELLOW); LEUKOCYTE ESTERASE ,URINE NEGATIVE (NEGATIVE); NITRITE, URINE NEGATIVE (NEGATIVE); PROTEIN,URINE 2+ mg/dl (NEGATIVE); UGLUCOSE NEGATIVE (NEGATIVE)
[2022-04-01 18:17] LABS: BACTERIA,URINE None seen /HPF (None Seen); CALCIUM OXALATE CRYSTALS,UR Moderate /HPF (None Seen); WBC,URINE 0-2 /HPF (0-3)
[2022-04-01 18:18] LABS: MUCUS,URINE Many /LPF (None Seen)
[2022-04-01 22:32] LABS: LYMPHOCYTES % (MANUAL) 21 % (16-48); MONOCYTES % (MANUAL) 6 % (0-11.0); NEUTROPHILS % (MANUAL) 73 (42-76)
== END ==
LOC: ER 13:41
DX: R10.33 Periumbilical pain (principal); Z86.73 Personal history of transient ischemic attack (TIA), and cerebral infarction without residual deficits; I42.9 Cardiomyopathy, unspecified; Z88.8 Allergy status to other drugs, medicaments and biological substances; Z60.2 Problems related to living alone; Z79.899 Other long term (current) drug therapy; Z79.82 Long term (current) use of aspirin; Z76.5 Malingerer [conscious simulation]
CPT/HCPCS: 99284; 96372 ×2; 85025; 80048; 83690; 80076; 84703; 81001; 36415; 85007; J2405 ×2; J2270; J7050; Q0162; Q9967

== ENCOUNTER 2022-04-09 17:15 | Emergency (ER) | payer BC ==
[~2022-04-09] VITALS: Ht 157.5 cm; Wt 45.4 kg
[~2022-04-09 17:15] MED LIST changes: -CT SWABBABLE VALVE TRANS SET 1 EA INFUS.SET MC ONE; -IOHEXOL-300 100 ML VIAL IV ONE; -IV NS 0.9% 250 ML IV ONE; -KETOROLAC TROMETHAMINE INJ 30 MG/ML VIAL IM ONE; -MORPHINE SULFATE INJ 2 MG/ML DISP.SYRIN IV ONE; -MORPHINE SULFATE INJ 2 MG/ML DISP.SYRIN ONE; -ONDANSETRON 4 MG TAB.RAPDIS ONE; -ONDANSETRON HCL/PF 4 MG/2 ML VIAL IVP ONE; -ONDANSETRON HCL/PF 4 MG/2 ML VIAL ONE
[2022-04-09] MEDS ORDERED: ACETAMINOPHEN ES 500 MG TABLET ONE (18:39)
[2022-04-09] MEDS ORDERED: CYCLOBENZAPRINE 10 MG TABLET ONE (18:40)
--- NOTE | 2022-04-09 18:48 | NUR ---
DR FRAIRE MADE AWARE THAT PT CANNOT TOLERATE PO MEDS AND REQUESTED IV MEDICATION. PER , NO IV MEDS BUT OK FOR PT TO GET ZOFRAN IM PRIOR TO PO MEDS.
[2022-04-09] MEDS ORDERED: ONDANSETRON HCL/PF 4 MG/2 ML VIAL ONE (18:55)
--- NOTE | 2022-04-09 18:57 | NUR ---
PT REFUSED ORDERED MEDICATIONS BY DR FRAIRE. EXPLAINED RISKS AND BENEFITS TO PT. PT A/O X4 AND ABLE TO MAKE NEEDS KNOWN. PT UNDERSTANDS RISKS AND BENEFITS. DR FRAIRE MADE AWARE.
[2022-04-09] MEDS ORDERED: ONDANSETRON HCL/PF 4 MG/2 ML VIAL IM ONE (19:00)
[2022-04-09] MEDS ORDERED: ACETAMINOPHEN ES 500 MG TABLET PO ONE (19:00)
[2022-04-09] MEDS ORDERED: CYCLOBENZAPRINE 10 MG TABLET PO ONE (19:00)
--- NOTE | 2022-04-09 19:10 | NUR ---
Patient discharged to home in stable condition. Written and verbal after care instructions given. Patient verbalizes understanding of instruction.
[2022-04-09 19:11] VITALS: BP 110/60
== END 2022-04-09 19:11 | disposition home or self-care (01) ==
LOC: ER 17:20
DX: M26.641 Arthritis of right temporomandibular joint (principal); Z88.8 Allergy status to other drugs, medicaments and biological substances; Z60.2 Problems related to living alone; Z79.899 Other long term (current) drug therapy
CPT/HCPCS: J2405

== ENCOUNTER 2022-04-15 11:17 | Emergency (ER) | payer BC ==
[~2022-04-15] VITALS: Ht 157.5 cm; Wt 81.6 kg
[2022-04-15] MEDS ORDERED: FUROSEMIDE 40 MG/4 ML VIAL IV ONE (12:00)
[2022-04-15] MEDS ORDERED: MORPHINE SULFATE INJ 2 MG/ML DISP.SYRIN IV ONE ×2 (13:00→15:30)
[2022-04-15 13:06] LABS: BASOPHILS % (AUTO) 0.9 % (0.0-2.0); EOSINOPHILS % (AUTO) 2.8 % (0.0-6.0); HEMATOCRIT 43 % (33-45); HEMOGLOBIN 12.7 g/dL (11.5-14.8); LYMPHOCYTES # (AUTO) 0.8 K/uL (0.8-4.8); LYMPHOCYTES % (AUTO) 19.3 % (20.0-44.0); MEAN CORPUSCULAR HGB CONC 30 g/dl (31.0-36.0); MEAN CORPUSCULAR VOLUME 76 fL (82-100); MONOCYTES # (AUTO) 0.3 K/uL (0.1-1.30); MONOCYTES % (AUTO) 8.4 % (2.0-12.0); NEUTROPHILS # (AUTO) 2.8 K/uL (1.8-8.9); NEUTROPHILS % (AUTO) 68.6 % (43.0-81.0); PLATELET COUNT (AUTO) 201 K/uL (150-450); WHITE BLOOD COUNT (AUTO) 4.1 K/uL (4.3-11.0)
[2022-04-15 13:16] LABS: CALCIUM, SERUM 9.5 mg/dL (8.5-10.1); CARBON DIOXIDE 24 mmol/L (21-32); CHLORIDE 106 mmol/L (98-107); CREATININE 0.8 mg/dL (0.6-1.3); GLUCOSE 84 mg/dL (74-106); POTASSIUM 3.7 mmol/L (3.5-5.1); SODIUM SERUM 139 mmol/L (136-145); UREA NITROGEN, BLOOD 16 mg/dL (7-18)
[2022-04-15 13:28] LABS: ALANINE AMINOTRANSFERASE 20 U/L (12-78); ALBUMIN 4.1 g/dL (3.4-5.0); ALKALINE PHOSPHATASE 193 U/L (46-116); ASPARTATE AMINOTRANSFERASE 28 U/L (15-37); BILIRUBIN,DIRECT 0.7 mg/dL (0.0-0.2); BILIRUBIN,TOTAL 1.5 mg/dL (0.2-1.0); TOTAL PROTEIN, SERUM 8.3 g/dL (6.4-8.2)
[2022-04-15] MEDS ORDERED: ONDANSETRON HCL/PF 4 MG/2 ML VIAL ONE (13:36)
[2022-04-15] MEDS ORDERED: MORPHINE SULFATE INJ 4 MG/ML DISP.SYRIN ONE ×2 (13:36→15:34)
[2022-04-15] MEDS ORDERED: FUROSEMIDE 40 MG/4 ML VIAL ONE (13:37)
--- NOTE | 2022-04-15 15:26 | NUR ---
PT TO RADIOLOGY FOR ABDOMINAL CT SCAN VIA WHEELCHAIR.
[2022-04-15] MEDS ORDERED: ACETAMINOPHEN 325 MG TABLET ONE (17:51)
[2022-04-15] MEDS ORDERED: ACETAMINOPHEN 325 MG TABLET PO ONE (18:00)
--- NOTE | 2022-04-15 18:07 | NUR ---
IV removed. Catheter intact and site benign. Pressure and 4x4 applied to site. No bleeding noted.Patient discharged to home in stable condition. Written and verbal after care instructions given. Patient verbalizes understanding of instruction.
[2022-04-15 18:08] VITALS: BP 109/75
== END 2022-04-15 18:08 | disposition home or self-care (01) ==
LOC: ER 11:20
DX: I50.9 Heart failure, unspecified (principal); R10.32 Left lower quadrant pain; I42.9 Cardiomyopathy, unspecified; Z88.8 Allergy status to other drugs, medicaments and biological substances; Z60.2 Problems related to living alone; Z79.899 Other long term (current) drug therapy
CPT/HCPCS: 99285; 74176; 96374; 71045; 96375; 93005; 96376; 85025; 80048; 80076; 36415; 84484 ×2; 83880; J1940; J2270 ×2; J2405

== ENCOUNTER 2022-04-20 15:45 | Emergency (ER) | payer BC ==
[~2022-04-20] VITALS: Ht 157.5 cm; Wt 90.7 kg
--- NOTE | 2022-04-20 16:10 | NUR ---
CHEST PRESSURE WORST WHEN LAYING DOWN. STARTED LAST NIGHT
--- NOTE | 2022-04-20 17:07 | NUR ---
BLOOD SAMPLE OBTAINED
[2022-04-20 17:28] LABS: EOSINOPHILS % (AUTO) 2.8 % (0.0-6.0); HEMATOCRIT 39 % (33-45); HEMOGLOBIN 12.6 g/dL (11.5-14.8); LYMPHOCYTES % (AUTO) 20.4 % (20.0-44.0); MEAN CORPUSCULAR HGB CONC 32 g/dl (31.0-36.0); MEAN CORPUSCULAR VOLUME 74 fL (82-100); MONOCYTES # (AUTO) 0.5 K/uL (0.1-1.30); MONOCYTES % (AUTO) 9.4 % (2.0-12.0); NEUTROPHILS # (AUTO) 3.3 K/uL (1.8-8.9); NEUTROPHILS % (AUTO) 66.4 % (43.0-81.0); PLATELET COUNT (AUTO) 260 K/uL (150-450); RED BLOOD CELL COUNT(AUTO) 5.35 MIL/uL (4.0-5.2); WHITE BLOOD COUNT (AUTO) 4.9 K/uL (4.3-11.0)
--- NOTE | 2022-04-20 17:30 | NUR ---
PT REFUSED NORCO. ASKED FOR IV MEDS INSTEAD. EXPLAINED TO HER THAT IT IS NOT ORDERED AND SHE ASKED TO LEAVE AMA
[2022-04-20 17:39] LABS: CALCIUM, SERUM 9.4 mg/dL (8.5-10.1); CARBON DIOXIDE 31 mmol/L (21-32); CHLORIDE 101 mmol/L (98-107); CREATININE 1.1 mg/dL (0.6-1.3); GLUCOSE 85 mg/dL (74-106); POTASSIUM 3.2 mmol/L (3.5-5.1); SODIUM SERUM 140 mmol/L (136-145); UREA NITROGEN, BLOOD 20 mg/dL (7-18)
[2022-04-20] MEDS ORDERED: HYDROCODONE/APAP 5/325MG TABLET ONE (17:44)
[2022-04-20] MEDS ORDERED: HYDROCODONE/APAP 5/325MG TABLET PO ONE (18:00)
--- NOTE | 2022-04-20 18:02 | NUR ---
PT CHOOSES TO STAY AFTER SPEAKING TO DR. MONTERROSO REFUSED BY PATIENT.
--- NOTE | 2022-04-20 19:03 | NUR ---
PT SIGNED AND DECIDED TO LEAVE AMA
--- NOTE | 2022-04-20 19:05 | NUR ---
Patient does not wish to proceed with medical care recommended by Dr. Unique WATKINS ). Patient given information related to possible complications, up to and including , which could occur as a result of leaving the hospital at this time. Patient verbalizes understanding of risks involved due to leaving against medical advice. Patient has signed AMA form.
[2022-04-20 19:07] VITALS: BP 109/71
[2022-04-20 19:07] LABS: BAND % (MANUAL) 1 % (0.0-5.0); EOSINOPHILS % (MANUAL) 4 % (0-4); LYMPHOCYTES % (MANUAL) 22 % (16-48); MONOCYTES % (MANUAL) 6 % (0-11.0); NEUTROPHILS % (MANUAL) 67 (42-76)
== END 2022-04-20 19:18 | disposition left against medical advice (07) ==
LOC: ER 16:05
DX: I42.9 Cardiomyopathy, unspecified (principal); R07.89 Other chest pain; M27.8 Other specified diseases of jaws; Z86.73 Personal history of transient ischemic attack (TIA), and cerebral infarction without residual deficits; Z88.8 Allergy status to other drugs, medicaments and biological substances; Z60.2 Problems related to living alone; Z79.82 Long term (current) use of aspirin; Z79.899 Other long term (current) drug therapy
CPT/HCPCS: 36415; 80048-TC; 84484-TC; 85025-TC

== ENCOUNTER 2022-05-08 02:30 | Emergency (ER) | payer BC ==
[~2022-05-08] VITALS: Ht 157.5 cm; Wt 72.6 kg
--- NOTE | 2022-05-08 02:55 | NUR ---
BIBS FOR UPPER ABD PAIN X 3 HOURS. -N/V. PATIENT IS AAOX4. ABLE TO MAKE NEEDS KNOWN. AMBULATORY. PLACED COMFORTABLY IN BED. VITALS CHECKED.
--- NOTE | 2022-05-08 03:26 | NUR ---
EKG DONE AT BEDSIDE
[2022-05-08 04:14] LABS: CALCIUM, SERUM 8.9 mg/dL (8.5-10.1); CARBON DIOXIDE 26 mmol/L (21-32); CHLORIDE 102 mmol/L (98-107); CREATININE 0.9 mg/dL (0.6-1.3); GLUCOSE 95 mg/dL (74-106); POTASSIUM 2.9 mmol/L (3.5-5.1); SODIUM SERUM 139 mmol/L (136-145); UREA NITROGEN, BLOOD 17 mg/dL (7-18)
[2022-05-08 04:23] LABS: BASOPHILS % (AUTO) 0.6 % (0.0-2.0); EOSINOPHILS % (AUTO) 1.8 % (0.0-6.0); HEMATOCRIT 36 % (33-45); HEMOGLOBIN 11.3 g/dL (11.5-14.8); LYMPHOCYTES # (AUTO) 0.8 K/uL (0.8-4.8); LYMPHOCYTES % (AUTO) 16.8 % (20.0-44.0); MEAN CORPUSCULAR HGB CONC 32 g/dl (31.0-36.0); MEAN CORPUSCULAR VOLUME 74 fL (82-100); MONOCYTES # (AUTO) 0.3 K/uL (0.1-1.30); MONOCYTES % (AUTO) 6.9 % (2.0-12.0); NEUTROPHILS # (AUTO) 3.6 K/uL (1.8-8.9); NEUTROPHILS % (AUTO) 73.9 % (43.0-81.0); PLATELET COUNT (AUTO) 197 K/uL (150-450); RED BLOOD CELL COUNT(AUTO) 4.84 MIL/uL (4.0-5.2); WHITE BLOOD COUNT (AUTO) 4.9 K/uL (4.3-11.0)
[2022-05-08] MEDS ORDERED: ACETAMINOPHEN ES 500 MG TABLET ONE (04:30)
[2022-05-08] MEDS ORDERED: ACETAMINOPHEN 325 MG TABLET PO ONE (04:30)
[2022-05-08] MEDS ORDERED: FUROSEMIDE 40 MG TABLET PO ONE (05:00)
[2022-05-08] MEDS ORDERED: POTASSIUM CHLORIDE 20 MEQ TAB.PRT.SR PO ONE (05:00)
--- NOTE | 2022-05-08 05:04 | NUR ---
Patient discharged to home in stable condition. Written and verbal after care instructions given. Patient verbalizes understanding of instruction.
[2022-05-08 05:06] VITALS: BP 124/71
[2022-05-08 10:43] LABS: BAND % (MANUAL) 1 % (0.0-5.0); BASOPHILS % (MANUAL) 0 % (0.0-2.0); EOSINOPHILS % (MANUAL) 2 % (0-4); LYMPHOCYTES % (MANUAL) 19 % (16-48); MONOCYTES % (MANUAL) 6 % (0-11.0); NEUTROPHILS % (MANUAL) 72 (42-76)
== END 2022-05-08 05:13 | disposition home or self-care (01) ==
LOC: ER 02:32
DX: G89.29 Other chronic pain (principal); R07.89 Other chest pain; I50.9 Heart failure, unspecified; Z88.8 Allergy status to other drugs, medicaments and biological substances; Z79.899 Other long term (current) drug therapy
CPT/HCPCS: 36415; 71045-TC; 80048-TC; 83880; 84484-TC; 85025-TC